=== PATIENT | male | born 1960 | race Caucasian/White ===

== ENCOUNTER 2018-07-09 14:31 | Emergency (ER) | payer MEDICAID ==
[2018-07-09 14:41] VITALS: O2SAT 99
--- NOTE | 2018-07-09 15:48 | C.PDOC ---
History Of Present Illness 58 y/o male pt with hx of a-fib presents to the ER c/o blurry vision in left eye x1 hour ago. Pt reports he had this before last year and was seen by [facility]. He received CT scans and MRI and other various tests, results show no signs of stroke at that time. Pt notes the day after he was seen by [facility], he we to [facility] to "get his eyes cleaned", but never f/u with [facility]. Pt reports he is not compliant with his coumadin for the last 5 days secondary to scheduled dental procedure. Pt denies any other associated sx or complaints at this time. Time Seen by Provider: 07/09/18 15:07 Chief Complaint (Nursing): Eye Problem History Per: Patient History/Exam Limitations: no limitations Onset/Duration Of Symptoms: Hrs (x1) Current Symptoms Are (Timing): Still Present Past Medical History Reviewed: Historical Data, Nursing Documentation, Vital Signs Vital Signs: Last Vital Signs Temp 98.1 F 07/09/18 14:34 Pulse 90 07/09/18 14:34 Resp 16 07/09/18 14:34 BP 153/87 H 07/09/18 14:34 Pulse Ox 99 07/09/18 14:34 - Medical History PMH: Atrial Fibrillation, HTN Family History: States: No Known Family Hx - Social History Hx Alcohol Use: Yes Hx Substance Use: No Review Of Systems Except As Marked, All Systems Reviewed And Found Negative. Constitutional: Negative for: Fever, Chills Eyes: Positive for: Other (left eye blurry). Negative for: Pain Physical Exam - Physical Exam Appears: Non-toxic, No Acute Distress Skin: Warm, Dry Head: Normacephalic, Abrasion (nose bridge(pt is aware) ) Eye(s): bilateral: Normal Inspection, PERRL, EOMI Neurological/Psych: Oriented x3, Normal Speech, Normal Cognition ED Course And Treatment - Laboratory Results Result Diagrams: 07/09/18 15:55 07/09/18 15:55 O2 Sat by Pulse Oximetry: 99 (RA) Pulse Ox Interpretation: Normal - CT Scan/US head CT Other Rad Studies (CT/US): Read By Radiologist, Radiology Report Reviewed CT/US Interpretation: Accession No. : [id number]. Patient Name / ID : BINA CASAREZ / [id number]. Exam Date : 07/09/2018 16:22:22 ( Approved ). Study Comment : Sex / Age : M / 58Y. Creator : Kris Jenkins. Dictator : Molina Yun MD. Room Service Waiter/Waitress : Horse Doctor : Molina Yun MD. Approver2 : Report Date : 07/09/2018 16:27:57. My Comment : . Date of service: 07/09/2018. PROCEDURE: CT HEAD WITHOUT CONTRAST. HISTORY: blurred vision. COMPARISON: None available. TECHNIQUE: Axial computed tomography images were obtained through the head/brain without intravenous contrast. Radiation dose: Total exam DLP = 1051.22 mGy-cm. This CT exam was performed using one or more of the following dose reduction techniques: Automated exposure control, adjustment of the mA and/or kV according to patient size, and/or use of iterative reconstruction technique. FINDINGS: HEMORRHAGE: No intracranial hemorrhage. BRAIN: No mass effect or edema. No atrophy or chronic microvascular ischemic changes. VENTRICLES: Unremarkable. No hydrocephalus. CALVARIUM: Unremarkable. PARANASAL SINUSES: Mild chronic ethmoid sinusitis. MASTOID AIR CELLS: Unremarkable as visualized. No inflammatory changes. OTHER FINDINGS: None. IMPRESSION: No intracranial mass, hemorrhage or evidence of acute infarct. Mild chronic ethmoid sinusitis. Otherwise unremarkable. Progress Note: plans: -- blood work. -- EKG. -- Ct head. 4:53 PM [address] [facility]. Sun to discuss the case. Dr. Sun instructed patient f/u in his office on July 11 at 9:30 am. Disposition - Disposition Referrals: Lionel Sun [Staff Provider] - Disposition: HOME/ ROUTINE Disposition Time: 17:21 Condition: STABLE Additional Instructions: Follow up with [facility] on Wednesday, July 11, 2018 at 9:30 am. Return to ED if feel worse. Please take all your medications as instructed. Instructions: Anti-Clotting Medicines: Warfarin (Coumadin) Forms: [facility] (French) - Clinical Impression Clinical Impression: Blurred vision, left eye - PA / [employer] / Resident Statement / has reviewed & agrees with the documentation as recorded. - Scribe Statement The provider has reviewed the documentation as recorded by the Juancarlos Nunes Do All medical record entries made by the Dandreibe were at my direction and personally dictated by me. I have reviewed the chart and agree that the record accurately reflects my personal performance of the history, physical exam, medical decision making, and the department course for this patient. I have also personally directed, reviewed, and agree with the discharge instructions and disposition.
[2018-07-09 15:58] LABS: BASO % 0.3 % (0.0-2.0); EOS # 0.2 K/uL (0.0-0.7); EOS % 2.4 % (0.0-4.0); HEMOGLOBIN 13.4 g/dL (12.0-18.0); LYMPH # 2.2 K/uL (1.0-4.3); LYMPH % 30.6 % (20.0-40.0); MEAN CELL VOLUME 92.8 fL (80.0-94.0); MEAN CORPUSCULAR HEMOGLOBIN 31.4 pg (27.0-31.0); MEAN CORPUSCULAR HGB CONC 33.9 g/dL (33.0-37.0); MONO # 0.6 K/uL (0.0-0.8); MONO % 8.3 % (0.0-10.0); NEUT # 4.2 K/uL (1.8-7.0); NEUT % 58.4 % (50.0-75.0); RBC 4.26 Mil/uL (4.40-5.90); RED CELL DISTRIBUTION WIDTH 13.6 % (11.5-14.5); WHITE BLOOD COUNT 7.3 K/uL (4.8-10.8)
[2018-07-09 16:15] LABS: INR 1.2; PROTHROMBIN TIME 12.8 SECONDS (9.7-12.2)
[2018-07-09 16:16] LABS: ALB/GLOB RATIO 1.4 (1.0-2.1); ALBUMIN 4.8 g/dL (3.5-5.0); ALT/SGPT 30 U/L (21-72); AST/SGOT 35 U/L (17-59); BLOOD UREA NITROGEN 13 mg/dL (9-20); CALCIUM 9.5 mg/dl (8.6-10.4); GFR NON-AFRICAN AMERICAN > 60
--- NOTE | 2018-07-09 16:36 | CT ---
Date of service: 07/09/2018 PROCEDURE: CT HEAD WITHOUT CONTRAST. HISTORY: blurred vision COMPARISON: None available. TECHNIQUE: Axial computed tomography images were obtained through the head/brain without intravenous contrast. Radiation dose: Total exam DLP = 1051.22 mGy-cm. This CT exam was performed using one or more of the following dose reduction techniques: Automated exposure control, adjustment of the mA and/or kV according to patient size, and/or use of iterative reconstruction technique. FINDINGS: HEMORRHAGE: No intracranial hemorrhage. BRAIN: No mass effect or edema. No atrophy or chronic microvascular ischemic changes. VENTRICLES: Unremarkable. No hydrocephalus. CALVARIUM: Unremarkable. PARANASAL SINUSES: Mild chronic ethmoid sinusitis. MASTOID AIR CELLS: Unremarkable as visualized. No inflammatory changes. OTHER FINDINGS: None. IMPRESSION: No intracranial mass, hemorrhage or evidence of acute infarct. Mild chronic ethmoid sinusitis. Otherwise unremarkable.
[2018-07-09] MEDS ORDERED: Enoxaparin 40 mg Syringe SC STA (17:21)
[2018-07-09] MEDS ORDERED: Enoxaparin 80 mg Syringe SC STA (17:22)
[2018-07-09 17:32] VITALS: BP 148/82; PULSE 86; RESP 18; TEMP 98.2
--- NOTE | 2018-07-12 13:06 | CARD ---
APPROVED REPORT Date of service: 07/09/2018 EKG Measurement Heart [id number] <Conclusion> Atrial fibrillation Nonspecific T wave abnormality Abnormal ECG
== END 2018-07-09 17:34 | disposition home or self-care (01) ==
LOC: C.ER 14:31
DX: H53.8 Other visual disturbances (principal); I10 Essential (primary) hypertension; I48.91 Unspecified atrial fibrillation
CPT/HCPCS: 70450; 80053; 82948; 85025; 85610; 85730; 96372; 99284; J1650